=== PATIENT | male | born 1940 | race Caucasian/White ===

== ENCOUNTER 2016-12-14 20:42 | Inpatient (IN) | payer OTHER ==
[~2016-12-14] VITALS: Ht 177.8 cm; Wt 100.2 kg
[~2016-12-14 20:42] MED LIST: ASPIR 8181 M1 PO; ASPIRIN81 M2 PO; Aspirin Chewable PO; BREO ELLIPTA I1 EACH IH; BYSTOLIC5 MG PO; CARTIA XT120 MG PO; DOCUSATE SODIU100 MG PO; DUONEB 2.5-0.5 M3 ML AEROSOL; FERROUS SULFAT325 MG PO; FLOMAX0.4 MG PO; Flomax PO; Flovent 44 mcg IH; HYDROCORTISONE30 G2 PR; IPRATROPIU0.2 MG/1 M IH; KLOR-CON M1010 MEQ PO; LASIX40 MG PO; LEVAQUIN500 MG PO; LISINOPRIL10 MG PO; LOMOTIL TABLET1 EACH PO; Lasix PO; METOLAZONE5 MG PO; MILK OF MAGNESI10 ML PO; NITROSTAT0.4 MG SL; Ocean Nasal 0.65% BOTH NARES; PRINIVIL10 MG PO; PROTONIX40 MG PO; Protonix PO; Proventil,Ventolin H IH; SPIRIVA RESPIMAT4 G1 IH; SPIRIVA1 INHALATI IH; SYMBICORT60 INHALAT IH; TUDORZA PRESS400 MCG IH; TYLENOL REGULA325 MG PO; Zestril,Prinivil PO
[2016-12-14 21:27] LABS: HEMATOCRIT 32.4 % (38.0-50.0); MCH 25.7 PG (29.0-34.0); MCHC 29.6 G/DL (30.0-36.0); MCV 86.9 FL (86-99); MEAN PLAT.VOLUME 12.9 uM^3 (9.0-12.4); PLATELET COUNT 267 K/uL (156-360); RBC DIS.WIDTH-CV 16.9 % (11.8-14.6); RBC DIS.WIDTH-SD 54.2 % (39-53); RED BLOOD COUNT 3.73 M/uL (4.00-5.50); WHITE BLOOD COUNT 13.1 K/uL (4.1-10.2)
[2016-12-14 21:40] LABS: INTER. NORMALIZED RATIO 1.1; PROTHROMBIN TIME 11.4 (9.2-11.2); PTT 32.7 (25-32)
[2016-12-14 21:50] LABS: CHLORIDE 82 mEq/L (99-109)
[2016-12-14 21:51] LABS: POTASSIUM 5.5 mEq/L (3.7-5.4)
[2016-12-14 21:54] LABS: ANION GAP 14 MEQ/L (2-14)
[2016-12-14 21:55] LABS: TOTAL BILIRUBIN 0.9 mg/dL (0.0-1.0)
[2016-12-14 21:56] LABS: ALKALINE PHOSPHATASE 366 IU/L (3-129)
[2016-12-14 21:57] LABS: GFR ESTIMATE (CALCULATED) 31 mL/min/
[2016-12-14 21:58] LABS: DIRECT BILIRUBIN 0.5 mg/dL (0.0-0.3); UREA NITROGEN (BUN) 33 mg/dL (9-23)
[2016-12-14 22:00] LABS: GLUCOSE 941 mg/dL (70-99); LIPASE 68 U/L (1.0-51.0); SODIUM 117 mEq/L (136-147)
[2016-12-14 22:06] LABS: TROP-I INTERPRETATION NEGATIVE; TROPONIN-I 0.02 ng/mL (0.0-0.30)
[2016-12-14] MEDS ORDERED: LISINOPRIL10 MG PO (23:21)
[2016-12-14] MEDS ORDERED: FUROSEMIDE40 MG PO (23:22)
[2016-12-14] MEDS ORDERED: STIOLTO RESPIMAT4 GM IH (23:25)
[2016-12-14] MEDS ORDERED: METOLAZONE5 MG PO (23:25)
[2016-12-14] MEDS ORDERED: ASMANEX TW200 MICRO1 IH (23:26)
[2016-12-14 23:54] VITALS: BP 119/47
[2016-12-15] VITALS (20 sets, daily range): BP systolic 110–159; BP diastolic 51–87
[2016-12-15 00:10] LABS: CHLORIDE 89 mEq/L (99-109); POTASSIUM 4.9 mEq/L (3.7-5.4); SODIUM 122 mEq/L (136-147)
[2016-12-15 00:13] LABS: ANION GAP 13 MEQ/L (2-14)
[2016-12-15 00:16] LABS: GFR ESTIMATE (CALCULATED) 37 mL/min/
[2016-12-15 00:17] LABS: UREA NITROGEN (BUN) 31 mg/dL (9-23)
[2016-12-15 00:18] LABS: GLUCOSE 792 mg/dL (70-99)
[2016-12-15 01:14] LABS: METH RESISTANT S AUREUS PCR NEGATIVE (NEGATIVE)
[2016-12-15 01:17] LABS: PROBE CHECK PASS; SPECIMEN PROCESSING CONTROL PASS
[2016-12-15 01:25] LABS: UR CREATININE CONCENTRATION 30.5 MG/DL
[2016-12-15 02:06] LABS: GLUCOSE 702 mg/dL (70-99)
[2016-12-15 03:59] LABS: POINT-OF-CARE METER ID UU13113731
[2016-12-15 04:22] LABS: POINT-OF-CARE METER ID UU13113731
[2016-12-15 05:34] LABS: ANION GAP 11 MEQ/L (2-14)
[2016-12-15 05:37] LABS: UREA NITROGEN (BUN) 26 mg/dL (9-23)
[2016-12-15 05:38] LABS: POINT-OF-CARE METER ID UU13113731
[2016-12-15 05:40] LABS: CHLORIDE 99 mEq/L (99-109); GFR ESTIMATE (CALCULATED) 53 mL/min/; GLUCOSE 301 mg/dL (70-99); SODIUM 131 mEq/L (136-147)
[2016-12-15 05:53] LABS: POINT-OF-CARE METER ID UU13113731
[2016-12-15 06:25] LABS: POINT-OF-CARE METER ID UU13113731
[2016-12-15 06:43] LABS: TOTAL BILIRUBIN 0.6 mg/dL (0.0-1.0)
[2016-12-15 06:44] LABS: ALKALINE PHOSPHATASE 317 IU/L (3-129)
[2016-12-15 06:46] LABS: DIRECT BILIRUBIN 0.4 mg/dL (0.0-0.3)
[2016-12-15 07:29] LABS: POINT-OF-CARE METER ID UU13113731
[2016-12-15 07:39] LABS: Estimated Average Glucose 395 mg/dL (70-123)
[2016-12-15 08:28] LABS: HEMOGLOBIN A1c (GLYCOHEMOGLOB) 15.4 % HGB (Below 5.7)
[2016-12-15 08:56] LABS: ANION GAP 10 MEQ/L (2-14); CHLORIDE 99 MEQ/L (99-109); POTASSIUM 3.8 MEQ/L (3.7-5.4); SAMPLE HEMOLYSIS CHECK 0; SAMPLE ICTERIC CHECK 0; SAMPLE LIPEMIA CHECK 0; SODIUM 133 MEQ/L (136-147)
[2016-12-15 09:02] LABS: GFR ESTIMATE (CALCULATED) > 59 mL/min/; GLUCOSE 194 mg/dL (70-99); UREA NITROGEN (BUN) 23 mg/dL (9-23)
[2016-12-15 09:27] LABS: POINT-OF-CARE METER ID UU13113731
[2016-12-15 09:27] LABS: POINT-OF-CARE METER ID UU13113731
[2016-12-15 10:17] LABS: POINT-OF-CARE METER ID UU13113731
[2016-12-15 10:44] LABS: POINT-OF-CARE METER ID UU13113731
[2016-12-15 11:36] LABS: POINT-OF-CARE METER ID UU14162636
[2016-12-15 12:40] LABS: POINT-OF-CARE METER ID UU13113731
[2016-12-15 13:09] LABS: ANION GAP 8 MEQ/L (2-14); CHLORIDE 99 MEQ/L (99-109); GFR ESTIMATE (CALCULATED) > 59 mL/min/; GLUCOSE 153 mg/dL (70-99); POTASSIUM 4.1 MEQ/L (3.7-5.4); SAMPLE HEMOLYSIS CHECK 0; SAMPLE ICTERIC CHECK 0; SAMPLE LIPEMIA CHECK 0; SODIUM 131 MEQ/L (136-147); UREA NITROGEN (BUN) 20 mg/dL (9-23)
[2016-12-15 13:34] LABS: POINT-OF-CARE METER ID UU13113731
[2016-12-15 14:06] LABS: BASOPHIL COUNT 0.1 K/uL (0-0.1); EOSINOPHIL (%) 1.8 % (0-5); EOSINOPHIL COUNT 0.2 K/uL (0-0.3); HEMATOCRIT 30.3 % (38.0-50.0); IMMATURE GRANULOCYTE (%) 0.7 % (0.0-0.7); IMMATURE GRANULOCYTE COUNT 0.1 K/uL; INSTRUMENT ABS NEUTROPHIL CT 9.6 K/uL; MCH 25.9 PG (29.0-34.0); MCV 83.5 FL (86-99); MEAN PLAT.VOLUME 12.7 uM^3 (9.0-12.4); MONOCYTE (%) 8.6 % (3-12); NEUTROPHIL (%) 80.2 % (45-76); NEUTROPHIL COUNT 9.6 K/uL (1.8-6.4); PLATELET COUNT 222 K/uL (156-360); RBC DIS.WIDTH-CV 16.2 % (11.8-14.6); RBC DIS.WIDTH-SD 49.5 % (39-53); RED BLOOD COUNT 3.63 M/uL (4.00-5.50)
[2016-12-15 16:38] LABS: ADD MIUA? YES; BILIRUBIN NEGATIVE; BLOOD NEGATIVE; COLOR YELLOW ((YELLOW)); GLUCOSE (STRIP) >=500; KETONES NEGATIVE; LEUKOCYTES NEGATIVE; NITRITE NEGATIVE; PROTEIN (STRIP) NEGATIVE; SPECIFIC GRAVITY 1.021 (1.000-1.030); UROBILINOGEN 0.2 MG/DL (0.2-1.0)
[2016-12-15 17:05] LABS: POINT-OF-CARE METER ID UU13113731
[2016-12-15 17:08] LABS: BACTERIA NONE SEEN /HPF; EPITHELIAL CELLS RARE /HPF; MUCUS TRACE /LPF; RED BLOOD CELLS 0-5 /HPF (0-5); UCUL ADDED? NO; WHITE BLOOD CELLS 0-5 /HPF (0-5)
[2016-12-15 17:32] LABS: UR CREATININE CONCENTRATION 143.2 MG/DL
[2016-12-15 21:41] LABS: POINT-OF-CARE METER ID UU14174217
[2016-12-16] VITALS (7 sets, daily range): BP systolic 109–141; BP diastolic 46–75
[2016-12-16 07:05] LABS: BASOPHIL COUNT 0.1 K/uL (0-0.1); EOSINOPHIL (%) 2.3 % (0-5); EOSINOPHIL COUNT 0.2 K/uL (0-0.3); HEMATOCRIT 28.8 % (38.0-50.0); IMMATURE GRANULOCYTE (%) 0.5 % (0.0-0.7); INSTRUMENT ABS NEUTROPHIL CT 7.1 K/uL; LYMPHOCYTE COUNT 0.8 K/uL (1.0-2.8); MCH 25.8 PG (29.0-34.0); MCHC 30.6 G/DL (30.0-36.0); MCV 84.5 FL (86-99); MEAN PLAT.VOLUME 13.6 uM^3 (9.0-12.4); MONOCYTE COUNT 0.7 K/uL (0-0.8); NEUTROPHIL COUNT 7.1 K/uL (1.8-6.4); PLATELET COUNT 192 K/uL (156-360); RBC DIS.WIDTH-CV 16.4 % (11.8-14.6); RBC DIS.WIDTH-SD 50.4 % (39-53); RED BLOOD COUNT 3.41 M/uL (4.00-5.50); WHITE BLOOD COUNT 8.9 K/uL (4.1-10.2)
[2016-12-16 07:32] LABS: ANION GAP 9 MEQ/L (2-14); CHLORIDE 101 MEQ/L (99-109); GFR ESTIMATE (CALCULATED) > 59 mL/min/; GLUCOSE 276 mg/dL (70-99); POTASSIUM 4.5 MEQ/L (3.7-5.4); SAMPLE HEMOLYSIS CHECK 0; SAMPLE ICTERIC CHECK 0; SAMPLE LIPEMIA CHECK 0; SODIUM 132 MEQ/L (136-147); UREA NITROGEN (BUN) 16 mg/dL (9-23)
[2016-12-16 14:33] LABS: POINT-OF-CARE METER ID UU13113731
[2016-12-16 14:33] LABS: POINT-OF-CARE METER ID UU13113731
[2016-12-17 08:04] LABS: ANION GAP 10 MEQ/L (2-14); CHLORIDE 101 MEQ/L (99-109); GFR ESTIMATE (CALCULATED) > 59 mL/min/; GLUCOSE 212 mg/dL (70-99); POTASSIUM 4.8 MEQ/L (3.7-5.4); SAMPLE HEMOLYSIS CHECK 0; SAMPLE ICTERIC CHECK 0; SAMPLE LIPEMIA CHECK 0; SODIUM 132 MEQ/L (136-147); UREA NITROGEN (BUN) 13 mg/dL (9-23)
[2016-12-17 08:14] LABS: BASOPHIL COUNT 0.1 K/uL (0-0.1); EOSINOPHIL (%) 3.2 % (0-5); EOSINOPHIL COUNT 0.3 K/uL (0-0.3); HEMATOCRIT 30.8 % (38.0-50.0); IMMATURE GRANULOCYTE (%) 0.6 % (0.0-0.7); IMMATURE GRANULOCYTE COUNT 0.1 K/uL; INSTRUMENT ABS NEUTROPHIL CT 7.6 K/uL; LYMPHOCYTE COUNT 1.1 K/uL (1.0-2.8); MCHC 30.5 G/DL (30.0-36.0); MCV 85.1 FL (86-99); MEAN PLAT.VOLUME 12.6 uM^3 (9.0-12.4); MONOCYTE (%) 8.7 % (3-12); MONOCYTE COUNT 0.9 K/uL (0-0.8); NEUTROPHIL COUNT 7.6 K/uL (1.8-6.4); NRBC (%) 0.4 /100 WBC (0-0); RBC DIS.WIDTH-CV 16.4 % (11.8-14.6); RBC DIS.WIDTH-SD 50.8 % (39-53); RED BLOOD COUNT 3.62 M/uL (4.00-5.50)
[2016-12-17 08:18] LABS: PLATELET COUNT 252 K/uL (156-360)
[2016-12-17 08:42] VITALS: BP 141/66
[2016-12-17 16:54] VITALS: BP 119/57
[2016-12-17 21:19] LABS: POINT-OF-CARE METER ID UU14162508
[2016-12-17 23:15] VITALS: BP 106/50
[2016-12-18 02:46] VITALS: BP 105/50
[2016-12-18 06:42] LABS: BASOPHIL COUNT 0.1 K/uL (0-0.1); EOSINOPHIL (%) 2.9 % (0-5); EOSINOPHIL COUNT 0.2 K/uL (0-0.3); HEMATOCRIT 30.5 % (38.0-50.0); IMMATURE GRANULOCYTE (%) 0.6 % (0.0-0.7); IMMATURE GRANULOCYTE COUNT 0.1 K/uL; INSTRUMENT ABS NEUTROPHIL CT 6.5 K/uL; LYMPHOCYTE COUNT 0.8 K/uL (1.0-2.8); MCH 25.9 PG (29.0-34.0); MCHC 30.5 G/DL (30.0-36.0); MEAN PLAT.VOLUME 12.4 uM^3 (9.0-12.4); MONOCYTE (%) 9.5 % (3-12); MONOCYTE COUNT 0.8 K/uL (0-0.8); NEUTROPHIL COUNT 6.5 K/uL (1.8-6.4); PLATELET COUNT 217 K/uL (156-360); RBC DIS.WIDTH-CV 16.1 % (11.8-14.6); RBC DIS.WIDTH-SD 50.4 % (39-53); RED BLOOD COUNT 3.59 M/uL (4.00-5.50); WHITE BLOOD COUNT 8.4 K/uL (4.1-10.2)
[2016-12-18 07:00] LABS: ANION GAP 9 MEQ/L (2-14); CHLORIDE 103 MEQ/L (99-109); GFR ESTIMATE (CALCULATED) > 59 mL/min/; GLUCOSE 254 mg/dL (70-99); POTASSIUM 4.5 MEQ/L (3.7-5.4); SAMPLE HEMOLYSIS CHECK 0; SAMPLE ICTERIC CHECK 0; SAMPLE LIPEMIA CHECK 0; SODIUM 133 MEQ/L (136-147); UREA NITROGEN (BUN) 12 mg/dL (9-23)
[2016-12-18 08:00] VITALS: BP 119/56
[2016-12-18 11:30] LABS: POINT-OF-CARE METER ID UU14162508
[2016-12-18 16:00] VITALS: BP 129/60
[2016-12-18 19:20] VITALS: BP 121/57
[2016-12-18] MEDS ORDERED: METFORMIN HCL500 MG PO (19:21)
[2016-12-18] MEDS ORDERED: GLIPIZIDE5 MG PO (19:22)
== END 2016-12-18 20:53 | disposition home health service (06) | DRG 683 ==
LOC: EME 20:42 → 4WEST 22:32 → EDOF 22:32 → 2EAST 22:32 → 4WEST 23:41 → 2EAST 12-16 00:31
PROVIDERS: Emergency Medicine; Family Medicine; Internal Medicine; Internal Medicine Nephrology; Internal Medicine Pulmonary Disease
DX: N17.9 Acute kidney failure, unspecified (principal); E87.1 Hypo-osmolality and hyponatremia; K92.2 Gastrointestinal hemorrhage, unspecified; E11.65 Type 2 diabetes mellitus with hyperglycemia; J44.9 Chronic obstructive pulmonary disease, unspecified; I50.9 Heart failure, unspecified; E87.79 Other fluid overload; E86.1 Hypovolemia; D50.0 Iron deficiency anemia secondary to blood loss (chronic); I10 Essential (primary) hypertension; E66.9 Obesity, unspecified; G47.30 Sleep apnea, unspecified; G43.909 Migraine, unspecified, not intractable, without status migrainosus; Z68.31 Body mass index [BMI] 31.0-31.9, adult; Z87.891 Personal history of nicotine dependence
CPT/HCPCS: 71010; 80048; 80048 91; 80076; 81003; 82436; 82570; 82948; 83036; 83690; 83735; 83935; 84100; 84133; 84156; 84300; 84484; 84999; 85025; 85027; 85610; 85730; 86850; 86900; 86901; 87641; 93005; 94640; 94640 76; 99281; 99285; J1644; J1815; J3480; J7030; J7050

== ENCOUNTER 2017-06-17 21:05 | Emergency (ER) | payer OTHER ==
[~2017-06-17] VITALS: Ht 177.8 cm; Wt 98.0 kg
[~2017-06-17 21:05] MED LIST changes: +ASMANEX TW200 MICRO1 IH; +FUROSEMIDE40 MG PO; +GLIPIZIDE5 MG PO; +METFORMIN HCL500 MG PO; +STIOLTO RESPIMAT4 GM IH
[2017-06-17 21:20] LABS: HEMATOCRIT 32.1 % (38.0-50.0); MCH 27.2 PG (29.0-34.0); MCHC 31.8 G/DL (30.0-36.0); MCV 85.6 FL (86-99); MEAN PLAT.VOLUME 10.3 uM^3 (9.0-12.4); PLATELET COUNT 207 K/uL (156-360); RBC DIS.WIDTH-CV 15.5 % (11.8-14.6); RBC DIS.WIDTH-SD 48.8 % (39-53); RED BLOOD COUNT 3.75 M/uL (4.00-5.50); WHITE BLOOD COUNT 13.2 K/uL (4.1-10.2)
[2017-06-17 21:28] LABS: CHLORIDE 106 mEq/L (99-109); POTASSIUM 4.1 mEq/L (3.7-5.4); SODIUM 137 mEq/L (136-147)
[2017-06-17 21:30] LABS: GLUCOSE 84 mg/dL (70-99)
[2017-06-17 21:31] LABS: ANION GAP 7 MEQ/L (2-14)
[2017-06-17 21:34] LABS: GFR ESTIMATE (CALCULATED) > 59 mL/min/; UREA NITROGEN (BUN) 18 mg/dL (9-23)
[2017-06-17 22:26] LABS: MAGNESIUM 1.9 mg/dL (1.3-2.7)
[2017-06-17 22:37] LABS: TROP-I INTERPRETATION NEGATIVE; TROPONIN-I 0.05 ng/mL (0.0-0.30)
[2017-06-18] MEDS ORDERED: DOXYCYCLINE MO100 MG PO (01:04)
[2017-06-18 01:19] VITALS: BP 139/54
== END 2017-06-18 01:20 | disposition home or self-care (01) ==
LOC: EME 21:05
DX: I13.0 Hypertensive heart and chronic kidney disease with heart failure and stage 1 through stage 4 chronic kidney disease, or unspecified chronic kidney disease (principal); I50.9 Heart failure, unspecified; N18.9 Chronic kidney disease, unspecified; J44.0 Chronic obstructive pulmonary disease with (acute) lower respiratory infection; J18.9 Pneumonia, unspecified organism; Z85.46 Personal history of malignant neoplasm of prostate; Z87.891 Personal history of nicotine dependence
CPT/HCPCS: 71020; 80048; 83735; 83880; 84484; 85027; 93005; 99281; 99284; J1940